=== PATIENT | female | born 1995 | race African-American/Black ===

== ENCOUNTER 2016-09-17 03:40 | Emergency (ER) | payer OTHER ==
--- NOTE | 2016-09-17 03:57 | PDOC ---
[id number] No Limitations - History of Present Illness Initial Comments: 09/17/16 06:13 The patient is a 21 year old female with no significant past medical history, who presents to the ED s/p syncopal episode. Patient was working at a [employer] when she passed out on the floor. Patient states it was very warm inside the lounge. She states she also has not been eating much due to a cold. Patient denies fever, chills, nausea, vomiting, diarrhea, hematochezia. Patient denies dysuria, frequency, urgency. LMP: August 23 2016 <Rakesh Coto - Last Filed: 09/17/16 06:13> <Soumya Faulkner - Last Filed: 09/25/16 04:58> - General Stated Complaint: SYNCOPE Time Seen by Provider: 09/17/16 03:56 Past History <Rakesh Coto - Last Filed: 09/17/16 06:13> - Reproductive History (#): 1 Para: 0 Therapeutic (s) & number: Yes Spontaneous : 0 - Psycho/Social/Smoking Cessation Hx Anxiety: No Suicidal Ideation: No Smoking History: Never smoked Hx Alcohol Use: No Drug/Substance Use Hx: No Substance Use Type: None <Soumya Faulkner - Last Filed: 09/25/16 04:58> - Past Medical History Allergies/Adverse Reactions: Allergies Allergy/AdvReac Type Severity Reaction Status Date / Time No Known Allergies Allergy Verified 09/17/16 03:57 Home Medications: Ambulatory Orders NK [No Known Home Medication] 02/14/16 Review of Systems - Review of Systems Able to Perform ROS?: Yes Comments:: 09/17/16 06:14 GENERAL/CONSTITUTIONAL: No fever or chills. No weakness. HEAD, EYES, EARS, NOSE AND THROAT: No change in vision. No ear pain or discharge. No sore throat. CARDIOVASCULAR: No chest pain or shortness of breath. RESPIRATORY: No cough, wheezing, or hemoptysis. GASTROINTESTINAL: No nausea, vomiting, diarrhea or constipation. GENITOURINARY: No dysuria, frequency, or change in urination. MUSCULOSKELETAL: No joint or muscle swelling or pain. No neck or back pain. SKIN: No rash NEUROLOGIC: + loss of consciousness. No headache, vertigo, or change in strength /sensation. ENDOCRINE: No increased thirst. No abnormal weight change. HEMATOLOGIC/LYMPHATIC: No anemia, easy bleeding, or history of blood clots. ALLERGIC/IMMUNOLOGIC: No hives or skin allergy. <Rakesh Coto - Last Filed: 09/17/16 06:13> *Physical Exam - Vital Signs Last Vital Signs Temp Pulse Resp BP Pulse Ox 98.6 F 108 H 20 123/80 100 09/17/16 03:57 09/17/16 03:57 09/17/16 03:57 09/17/16 03:57 09/17/16 03:57 - Physical Exam Comments: 09/17/16 06:15 GENERAL: Awake, alert, and fully oriented, in no acute distress HEAD: No signs of trauma EYES: PERRLA, EOMI, sclera anicteric, conjunctiva clear ENT: Auricles normal inspection, hearing grossly normal, nares patent, oropharynx clear without exudates. Moist mucosa NECK: Normal ROM, supple, no lymphadenopathy, JVD, or masses LUNGS: Breath sounds equal, clear to auscultation bilaterally. No wheezes, and no crackles HEART: Regular rate and rhythm, normal S1 and S2, no murmurs, rubs or gallops ABDOMEN: Soft, nontender, normoactive bowel sounds. No guarding, no rebound. No masses EXTREMITIES: Normal range of motion, no edema. No clubbing or cyanosis. No cords, erythema, or tenderness NEUROLOGICAL: Cranial nerves II through XII grossly intact. Normal speech, normal gait SKIN: Warm, Dry, normal turgor, no rashes or lesions noted. <Rakesh Coto - Last Filed: 09/17/16 06:13> ED Treatment Course - LABORATORY CBC & Chemistry Diagram: 09/17/16 05:00 09/17/16 05:00 - ADDITIONAL ORDERS Additional order review: Laboratory Results 09/17/16 09/17/16 09/17/16 05:00 04:48 04:00 Sodium 139 Potassium 4.0 Chloride 104 Carbon Dioxide 26 Anion Gap 9 BUN 8 Creatinine 0.7 Creat Clearance w eGFR > 60 Random Glucose 91 Calcium 8.8 Total Bilirubin 0.2 D AST 12 L ALT 15 D Alkaline Phosphatase 55 Total Protein 7.9 Albumin 3.8 Urine Color Yellow Urine Appearance Clear Urine pH 5.0 Ur Specific [place] 1.025 Urine Protein Negative Urine Glucose (UA) Negative Urine Ketones Negative Urine Blood Negative Urine Nitrite Negative Urine Bilirubin Negative Urine Urobilinogen Negative Ur Leukocyte Esterase Trace H D Urine RBC 2 Urine WBC 7 Ur Epithelial Cells Rare Urine Bacteria Rare Urine Mucus Moderate Urine HCG, Qual Cancelled Negative 09/17/16 05:00 RBC 4.04 MCV 72.7 L MCHC 32.0 RDW 17.5 H MPV 7.6 Neutrophils % 80.6 D Lymphocytes % 13.8 D Monocytes % 5.1 Eosinophils % 0.1 D Basophils % 0.4 <Rakesh Coto - Last Filed: 09/17/16 06:13> - LABORATORY CBC & Chemistry Diagram: 09/17/16 05:00 09/17/16 05:00 <Soumya Faulkner - Last Filed: 09/25/16 04:58> Medical Decision Making - Medical Decision Making 09/17/16 05:55 Patient Name: Kameron Jimenez THIS IS A PRELIMINARYREPORT FROM [facility] EXAM: CT brain without contrast IMAGES: 70 INDICATION: Vasovagal syncope DATE OF SERVICE: 2016-09-17 05:09:33.0 COMPARISON: none FINDINGS: The ventricular system is midline and nondilated. The sulcal pattern is normal for the patient's age. There is no bleed, mass, extra-axial fluid collection or mass effect. No skull fracture or skull lesion is identified. The visualized paranasal sinuses and mastoid air cells are clear. IMPRESSION: No acute pathology. THIS DOCUMENT HAS BEEN ELECTRONICALLY SIGNED 09/25/16 04:55 Pt comes after a vasovagal like syncope. Head CT normal; labs normal. Pt is at her baseline Hb/HCT level. Exam is normal. She is thin and hasnt eaten mch today. She fainted at work. However, he is stable for discharge, as workup in the ER reveals no abdormalities. EKG is normal. Follow up with PMD. <Soumya Faulkner - Last Filed: 09/25/16 04:58> *DC/Admit/Observation/Transfer - Attestations Scribe Attestion: 09/17/16 06:16 Documentation prepared by Rakesh Coto, acting as medical associate for Soumya Faulkner MD. <Rakesh Coto - Last Filed: 09/17/16 06:13> - Discharge Dispostion Admit: No <Soumya Faulkner - Last Filed: 09/25/16 04:58> Diagnosis at time of Disposition: Syncope, Iron deficiency anemia, Vasovagal episode, Dehydration, Decreased appetite - Discharge Dispostion Disposition: HOME Condition at time of disposition: Stable - Referrals Referrals: Ayd Lynn MD [Staff Physician] - Rodrigo Lynn MD [Primary Care Provider] - - Patient Instructions Printed Discharge Instructions: DI for Syncope in Adults (Fainting), Anemia: How Food and Vitamins Can Help, DI for Dehydration -- Adult
[2016-09-17 04:16] VITALS: TEMP 98.6; BMI 22.4
[2016-09-17] MEDS ORDERED: KETOROLAC TROMETHAMINE 30 MG/1 ML VIAL ONE (05:01)
[2016-09-17 05:02] LABS: URINE APPEARANCE CLEAR; URINE BILIRUBIN NEGATIVE (NEGATIVE); URINE BLOOD NEGATIVE (NEGATIVE); URINE COLOR YELLOW; URINE GLUCOSE (UA) NEGATIVE (NEGATIVE); URINE KETONE NEGATIVE (NEGATIVE); URINE NITRITE NEGATIVE (NEGATIVE); URINE PROTEIN NEGATIVE (NEGATIVE); URINE UROBILINOGEN NEGATIVE E.U./dl (0.2-1.0)
[2016-09-17 05:04] LABS: URINE LEUK ESTERASE TRACE (NEGATIVE)
[2016-09-17 05:08] LABS: BASOPHIL 0.4 % (0-2.0); EOSINOPHIL 0.1 % (0-4.5); MCH 23.3 pg (25.7-33.7); MEAN CELL VOLUME 72.7 fl (80-96); MEAN PLT VOLUME 7.6 fl (7.5-11.1); NEUTROPHILS 80.6 % (42.8-82.8); PLATELET COUNT 358 K/MM3 (134-434); RDW 17.5 % (11.6-15.6)
[2016-09-17 05:09] LABS: URINE BACTERIA RARE /hpf (NONE SEEN); URINE MUCUS MODERATE; URINE RBC 2 /hpf (0-3); URINE WBC 7 /hpf (3-5)
[2016-09-17] MEDS ORDERED: KETOROLAC TROMETHAMINE 30 MG/1 ML VIAL IVPUSH ONE (05:09)
[2016-09-17 05:51] LABS: CO2 26 mmol/L (21-32); CREATININE 0.7 mg/dL (0.55-1.02); GLUCOSE,RANDOM 91 mg/dL (74-106)
[2016-09-17 05:52] LABS: ALBUMIN 3.8 g/dl (3.4-5.0); ANION GAP 9 (8-16); BILIRUBIN,TOTAL 0.2 mg/dL (0.2-1.0); CALCIUM 8.8 mg/dL (8.5-10.1); SGOT/AST 12 U/L (15-37); SGPT/ALT 15 U/L (12-78); TOT PROT 7.9 g/dl (6.4-8.2)
[2016-09-17 05:53] LABS: ALK PHOS 55 U/L (45-117)
[2016-09-17 06:41] VITALS: BP 126/70; PULSE 90
--- NOTE | 2016-09-19 07:23 | EKG ---
Test Reason : Blood Pressure : / mmHG Vent. Rate : 096 BPM Atrial Rate : 096 BPM P-R Int : 150 ms QRS Dur : 086 ms QT Int : 344 ms P-R-T Axes : 073 048 050 degrees QTc Int : 434 ms NORMAL SINUS RHYTHM NORMAL ECG NO PREVIOUS ECGS AVAILABLE Confirmed by KATEY MIDDLETON MD ([id number]) on 09/19/2016 7:23:10 AM Referred By: Confirmed By:KATEY MIDDLETON MD
== END 2016-09-17 06:30 | disposition home or self-care (01) ==
LOC: JER 03:40
PROC: 3E0333Z Introduction of Anti-inflammatory into Peripheral Vein, Percutaneous Approach (ICD-10-PCS; principal; 2016-09-17)
DX: R55 Syncope and collapse (principal); E86.0 Dehydration; R63.0 Anorexia; D50.9 Iron deficiency anemia, unspecified
CPT/HCPCS: 36415; 70450-TC; 80053; 81003; 81015; 84703; 85025; 93005; 93010; 99282-25

== ENCOUNTER 2018-02-03 05:29 | Emergency (ER) | payer OTHER ==
[2018-02-03 06:05] VITALS: TEMP 98.1; BMI 23.6
[2018-02-03] MEDS ORDERED: ACETAMINOPHEN 325 MG TABLET (FP) PO ONE (06:14)
[2018-02-03] MEDS ORDERED: ACETAMINOPHEN 325 MG TABLET (FP) ONE (06:27)
--- NOTE | 2018-02-03 06:28 | PDOC ---
Attending Attestation - HPI HPI: 02/03/18 06:39 Patient is a 22 year old female with no significant past medical history who presents to the ED with complaints of diffuse lower abdominal pain that began x2 weeks ago. Patient reports experincing diffuse superpubic pain that she states is an intermittent pain that develops suddenly and subsides after 6 hours. She reports her last menstrual cycles was last month on december 23, but states she took a test yesterday afternoon with the results being negative. Patient denies taking any medication for pain but stating she wanted to come into the ED for further evaluation to make sure everything is fine. Denies chest pain, Sob. Denies nausea, vomiting. Denies contact with sick individuals, out of state travelling. Denies any other symptoms. Allergies: None Social history: No smoking. No alcohol. No illicit drugs. Surgical history: None PMD: Dr. Rodrigo Lynn - Physicial Exam PE: 02/03/18 06:39 GENERAL: +Reports mild superpubic tenderness. Awake, alert, and fully oriented, in no acute distress HEAD: No signs of trauma EYES: PERRLA, EOMI, sclera anicteric, conjunctiva clear ENT: Auricles normal inspection, hearing grossly normal, nares patent, oropharynx clear without exudates. Moist mucosa NECK: Normal ROM, supple, no lymphadenopathy, JVD, or masses LUNGS: Breath sounds equal, clear to auscultation bilaterally. No wheezes, and no crackles HEART: Regular rate and rhythm, normal S1 and S2, no murmurs, rubs or gallops ABDOMEN: No abdominal tenderness. Soft, normoactive bowel sounds. No guarding, no rebound. No masses EXTREMITIES: Normal range of motion, no edema. No clubbing or cyanosis. No cords, erythema, or tenderness NEUROLOGICAL: Cranial nerves II through XII grossly intact. Normal speech, normal gait SKIN: Warm, Dry, normal turgor, no rashes or lesions noted. <Ned Ulloa - Last Filed: 02/03/18 06:39> - Resident Resident Name: Terry Vincent - ED Attending Attestation I have performed the following: I have examined & evaluated the patient, The case was reviewed & discussed with the resident, I agree w/resident's findings & plan, Exceptions are as noted - Medical Decision Making 02/03/18 06:18 A portion of this note was written by my scribe, under my supervision. Vital Signs Temp Pulse Resp BP Pulse Ox 98.1 F 71 18 132/66 99 02/03/18 05:30 02/03/18 05:30 02/03/18 05:30 02/03/18 05:30 02/03/18 05:30 22 year old female with no past medical history presents with suprapubic discomfort x several weeks. Pt reports that the pain has been going intermittent and now pressure in sensation. The patient is concerned that she had missed her period for nearly a week and a half. Her LMP was January 23, and the patient is sexually active. Not on control. Pt reports taking her urine test yesterday which was reportedly negative. Pt did have some urinary frequency few days ago, but denies dysuria. On my examination, the patient does not have any obvious abdominal tenderness or pain at mcburney's point. She some have some very mild suprapubic discomfort as per the patient. I do not suspect appendicitis, colitis, or other acute abdominal pathology. However will need to r/o cystitis. In addition, the patient needs a test. If the workup is negative and the patient feels reassured, we can have the patient follow up as an outpatient with a RN BURN physician. However, if the patient continues to have persistent pain, will need to investigate with further imaging and lab workup. 02/03/18 06:45 Urine Test Results Urine Color Yellow 02/03/18 06:02 Urine Appearance Cloudy 02/03/18 06:02 Urine pH 5.0 (5.0-8.0) 02/03/18 06:02 Ur Specific [place] 1.024 (1.001-1.035) 02/03/18 06:02 Urine Protein Negative (NEGATIVE) 02/03/18 06:02 Urine Glucose (UA) Negative (NEGATIVE) 02/03/18 06:02 Urine Ketones Negative (NEGATIVE) 02/03/18 06:02 Urine Blood Negative (NEGATIVE) 02/03/18 06:02 Urine Nitrite Negative (NEGATIVE) 02/03/18 06:02 Urine Bilirubin Negative (<2.0 mg/dL) 02/03/18 06:02 Ur Leukocyte Esterase Trace (NEGATIVE) 02/03/18 06:02 Urine test negative. Given her symptoms, and trace leuks, will treat as UTI. Keflex 02/03/18 06:49 Pt states that she feels more comfortable knowing she's not . She has a follow up appointment with her PATHOLOGY TEACHER. Will d/c with antibiotics. <Jaylen Simon - Last Filed: 02/03/18 06:50>
--- NOTE | 2018-02-03 06:28 | PDOC ---
History of Present Illness - General Chief Complaint: Pain Stated Complaint: ABD PAIN Time Seen by Provider: 02/03/18 05:55 History Source: Patient Exam Limitations: No Limitations - History of Present Illness Initial Comments: 22 y/o female presenting to [facility] ER complaining of suprapubic tightness for the past day. Described as non-radiating, intermittent, and made worse by sitting. Has been experiencing sharp and intermittent suprapublc pain for the past three weeks. Endorses a increased urinary frequency one day last week. Denies dysuria , discharge, hematuria, fevers, chills, diaphoresis, or migratory pain. Is concerned that her period is a week and two days late. Is sexualy active with single male partner. Denies practicing safe sex. Is not on control. History of gonorrhea in 2016. 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 Past History - Past Medical History Allergies/Adverse Reactions: Allergies Allergy/AdvReac Type Severity Reaction Status Date / Time No Known Allergies Allergy Verified 02/03/18 06:37 Home Medications: Ambulatory Orders Cephalexin Monohydrate [Keflex -] 500 mg PO BID 7 Days #14 capsule 02/03/18 COPD: No - Reproductive History (#): 1 Para: 0 Therapeutic (s) & number: Yes Spontaneous : 0 - Suicide/Smoking/Psychosocial Hx Smoking History: Never smoked Have you smoked in the past 12 months: No Hx Alcohol Use: No Drug/Substance Use Hx: No Substance Use Type: None Review of Systems - Review of Systems Able to Perform ROS?: Yes Is the patient limited Armenian proficient: No Constitutional: No: Chills, Diaphoresis, Fever HEENTM: No: Difficulty Swallowing Respiratory: No: Cough Cardiac (ROS): No: Chest Pain ABD/GI: No: Constipated, Diarrhea, Nausea, Vomiting : Yes: Frequency (Single episode last week). No: Burning, Dysuria, Discharge , Flank Pain, Hematuria Musculoskeletal: No: Back Pain Integumentary: No: Bruising Hematologic/Lymphatic: No: Easy Bleeding, Easy Bruising *Physical Exam - Vital Signs Last Vital Signs Temp Pulse Resp BP Pulse Ox 98.1 F 71 18 132/66 99 02/03/18 05:30 02/03/18 05:30 02/03/18 05:30 02/03/18 05:30 02/03/18 05:30 - Physical Exam Comments: Constitutional: Well-developed, well-nourished female in no acute distress. Found semi-fowlers in hospital bed. Alert and oriented x4. Answered all questions appropriately and completely. Speech was non-labored, non-pressured. HEENT: Normocephalic. No obvious external signs of trauma. Sclerae white. Conjunctiva moist and not injected. Hearing grossly normal. No nasal discharge. Lips, gums and oropharynx: pink, moist, not injected, no lesions, no ulcerations. Neck is supple, trachea is midline. Cardiovascular: Regular rate and regular rhythm. 3/5 systolic murmur loudest on right sternal border with full expiration, rubs, clicks, or gallops. Peripheral pulses: Radial pulses full. Respiratory: Equal chest rise and fall. Clear to auscultation bilaterally. No stridor, no wheezing, no rhonchi. Gastrointestinal: abdomen is subjectively tender suprapubiclly without guarding , grimace, or rebound; otherwise soft and nondistended. No hepatosplenemegaly. No pulsatile masses. No overlying skin lesions or obvious signs of trauma. Neuro: Alert and oriented. Moving all four extremities spontaneously. Psych: Affect: appropriate. Mood: normal. Skin: Warm, dry, and intact. : No R or L CVA tenderness. Medical Decision Making - Medical Decision Making *Reviewed nursing notes and prior visit documentation. 22 y/o female with subjective suprapubic tenderness with reported urinary frequency. Concerned that she has not started menstruating in setting of reported unprotected sex with male partner. Afebrile. Vitals unremarkable for hypotension and tachycardia. Ordered UA, urine culture, Upreg, and chlamydia/GC amplification. PO tylenol for symptom relief. UPreg negative. UA positive for leukocyte esterase. Will treat for cystitis given frequency. Prescribed Keflex 500 BID. Discussed results with pt. She expressed verbal understanding and agreement with plan to discharge home with outpatient antibiotic therapy. She is already scheduled for an OBGYN appointment at [facility] on Sunday. *DC/Admit/Observation/Transfer Diagnosis at time of Disposition: UTI (urinary tract infection) Qualifiers: Urinary tract infection type: site unspecified Hematuria presence: without hematuria Qualified Code(s): N39.0 - Urinary tract infection, site not specified - Discharge Dispostion Disposition: HOME Condition at time of disposition: Good Decision to Admit order: No - Prescriptions Prescriptions: Cephalexin Monohydrate [Keflex -] 500 mg PO BID 7 Days #14 capsule - Referrals Referrals: Rodrigo Lynn MD [Primary Care Provider] - - Patient Instructions Printed Discharge Instructions: DI for Urinary Tract Infection (UTI) Additional Instructions: Your symptoms are likely because of urinary tract infection. I have sent a prescription for Keflex to the [facility] in [facility]. Please take this medication twice a day for seven days. Please keep your follow up appointment at [facility] on Sunday at 9am. Come back to the emergency department if your symptoms worsen or you feel like you need additional emergency care. Print Language: ANGUILLAN - Post Discharge Activity
[2018-02-03 06:39] LABS: URINE APPEARANCE CLOUDY; URINE BILIRUBIN NEGATIVE (<2.0 mg/dL); URINE COLOR YELLOW; URINE GLUCOSE (UA) NEGATIVE (NEGATIVE); URINE KETONE NEGATIVE (NEGATIVE); URINE LEUK ESTERASE TRACE (NEGATIVE); URINE NITRITE NEGATIVE (NEGATIVE); URINE PROTEIN NEGATIVE (NEGATIVE); URINE UROBILINOGEN NEGATIVE mg/dL (0.2-1.0)
[2018-02-03 06:41] LABS: HCG,QUALITATIVE URINE Negative
[2018-02-03 06:45] LABS: EPI CELLS MODERATE /HPF (FEW); URINE BACTERIA RARE /hpf (NONE SEEN); URINE MUCUS MANY
[2018-02-03 07:23] VITALS: BP 118/81; PULSE 76
== END 2018-02-03 07:23 | disposition home or self-care (01) ==
LOC: JER 05:29
DX: N39.0 Urinary tract infection, site not specified (principal); B96.89 Other specified bacterial agents as the cause of diseases classified elsewhere
CPT/HCPCS: 36415; 81003; 81015; 84703; 87086; 87186; 87491; 87591; 99282-25

== ENCOUNTER 2018-11-29 12:50 | Emergency (ER) | payer OTHER | END 2018-11-29 17:00 | disposition home or self-care (01) | LOC: JER 12:50 ==

== ENCOUNTER 2019-01-31 20:59 | Emergency (ER) | payer OTHER | END 2019-01-31 22:32 | disposition home or self-care (01) | LOC: JERFT 20:59 ==

== ENCOUNTER 2020-06-06 10:54 | Inpatient (IN) | payer OTHER ==
[2020-06-06 12:46] VITALS: BMI 34.2
[2020-06-06 13:14] LABS: BASO % 0.1 % (0-2.0); EOS % 0.4 % (0-4.5); HEMATOCRIT 41.2 % (32.4-45.2); HEMOGLOBIN 13.6 GM/dL (10.7-15.3); LYMPH % 19.1 % (8-40); MCH 30.1 pg (25.7-33.7); MCHC 33.1 g/dl (32.0-36.0); MEAN CELL VOLUME 91.1 fl (80-96); MEAN PLT VOLUME 9.3 fl (7.5-11.1); MONO % 7.2 % (3.8-10.2); NEUT % 73.2 % (42.8-82.8); PLATELET COUNT 280 K/MM3 (134-434); RBC 4.53 M/mm3 (3.60-5.2); RDW 15.7 % (11.6-15.6); WHITE BLOOD COUNT 9.3 K/mm3 (4.0-10.0)
[2020-06-06 13:20] LABS: INR 0.97 (0.83-1.09); PROTHROMBIN TIME (PATIENT) 11.7 SEC (9.7-13.0)
[2020-06-06 13:22] LABS: ACTIVATED PTT 30.3 SECONDS (25.2-36.5)
[2020-06-06 13:32] LABS: POTASSIUM 3.8 mmol/L (3.5-5.1)
[2020-06-06 13:34] LABS: CALCIUM 9.1 mg/dL (8.5-10.1)
[2020-06-06 13:35] LABS: BLOOD UREA NITROGEN 3.8 mg/dL (7-18)
[2020-06-06 13:38] LABS: CREATININE 0.4 mg/dL (0.55-1.3)
[2020-06-06] MEDS: DEXTROSE 5%-LACTATED RINGERS 1,000 ML IV SCH (14:00)
[2020-06-06] MEDS ORDERED: OXYTOCIN 30 UNITS in 0.9% NS 30 UNIT/500 ML INFUS.BAG IVPB ONE (14:05)
[2020-06-06] MEDS: OXYTOCIN 30 UNITS in 0.9% NS 30 UNIT/500 ML INFUS.BAG IVPB SCH (14:10)
[2020-06-06 14:29] LABS: HIV INTERPRETATION NEGATIVE (NEGATIVE)
[2020-06-06] MEDS ORDERED: PCA PUMP NR ONE (19:03)
[2020-06-06] MEDS ORDERED: FENTANYL/BUPIVACAINE/NS/PF - PCEA - 50 ML DISP.SYRIN EP ONE (19:22)
[2020-06-06] MEDS: FENTANYL/BUPIVACAINE/NS/PF - PCEA - 50 ML DISP.SYRIN EP SCH (20:00)
[2020-06-06] MEDS ORDERED: NALOXONE HCL 0.4 MG/ML VIAL IVPUSH PRN (20:18)
[2020-06-06] MEDS: ELECTROLYTE-148 SOLN 1,000 ML IV SCH (22:00)
[2020-06-07] MEDS ORDERED: FENTANYL/BUPIVACAINE/NS/PF - PCEA - 50 ML DISP.SYRIN EP ONE (00:34)
[2020-06-07] MEDS ORDERED: OXYTOCIN 20 UNITS in 0.9% NS 20 UNIT/1,000 ML INFUS.BAG IV ONE (03:10)
[2020-06-07] MEDS: OXYTOCIN 20 UNITS in 0.9% NS 20 UNIT/1,000 ML INFUS.BAG IV SCH (03:15)
[2020-06-07] MEDS ORDERED: METHYLERGONOVINE MALEATE 0.2 MG/1 ML AMP IM PRN (03:29)
[2020-06-07] MEDS ORDERED: BENZOCAINE 20% 57 GM BOTTLE TP PRN (03:29)
[2020-06-07] MEDS ORDERED: WITCH HAZEL 50% (TUCKS) 40 PAD/JAR PAD TP PRN (03:29)
[2020-06-07] MEDS ORDERED: BISACODYL 10 MG SUPP.RECT RC PRN (03:29)
[2020-06-07] MEDS ORDERED: BENZOCAINE 28 GM HEMORRHOIDAL OINTMENT TP PRN (03:29)
[2020-06-07] MEDS ORDERED: ONDANSETRON 4 MG/2 ML VIAL IVPUSH ONE (08:00)
[2020-06-07] MEDS: IBUPROFEN 600 MG TABLET (FP) PO PRN ×2 (08:22→20:02)
[2020-06-07] MEDS: ACETAMINOPHEN 325 MG TABLET (FP) PO PRN ×2 (08:25→20:02)
[2020-06-07] MEDS: PRENATAL VITAMINS W/ FOLIC ACID TABLET (FP) PO SCH (12:02)
[2020-06-07] MEDS: FENTANYL/BUPIVACAINE/NS/PF - PCEA - 50 ML DISP.SYRIN EP SCH (21:56)
[2020-06-08 09:15] LABS: BASO % 0.4 % (0-2.0); EOS % 0.8 % (0-4.5); HEMATOCRIT 35.3 % (32.4-45.2); HEMOGLOBIN 11.5 GM/dL (10.7-15.3); LYMPH % 19.7 % (8-40); MCH 29.7 pg (25.7-33.7); MCHC 32.6 g/dl (32.0-36.0); MEAN PLT VOLUME 9.3 fl (7.5-11.1); MONO % 6.9 % (3.8-10.2); NEUT % 72.2 % (42.8-82.8); PLATELET COUNT 250 K/MM3 (134-434); RBC 3.88 M/mm3 (3.60-5.2); RDW 15.7 % (11.6-15.6); WHITE BLOOD COUNT 14.5 K/mm3 (4.0-10.0)
[2020-06-08] MEDS: OXYTOCIN 20 UNITS in 0.9% NS 20 UNIT/1,000 ML INFUS.BAG IV SCH (10:36)
[2020-06-08] MEDS: ELECTROLYTE-148 SOLN 1,000 ML IV SCH (10:36)
[2020-06-08] MEDS: OXYTOCIN 30 UNITS in 0.9% NS 30 UNIT/500 ML INFUS.BAG IVPB SCH ×2 (10:36→20:00)
[2020-06-08] MEDS: PRENATAL VITAMINS W/ FOLIC ACID TABLET (FP) PO SCH (10:36)
[2020-06-08] MEDS: DEXTROSE 5%-LACTATED RINGERS 1,000 ML IV SCH ×2 (10:36→20:00)
[2020-06-08] MEDS: FENTANYL/BUPIVACAINE/NS/PF - PCEA - 50 ML DISP.SYRIN EP SCH (20:00)
[2020-06-08] MEDS ORDERED: SENNOSIDES/DOCUSATE COMBO (SENNA PLUS) TABLET (UD) PO PRN (22:00)
[2020-06-09] MEDS: ACETAMINOPHEN 325 MG TABLET (FP) PO PRN (10:20)
[2020-06-09] MEDS: IBUPROFEN 600 MG TABLET (FP) PO PRN (10:21)
[2020-06-09] MEDS: PRENATAL VITAMINS W/ FOLIC ACID TABLET (FP) PO SCH (10:22)
[2020-06-09 13:31] VITALS: BP 128/68; PULSE 84; TEMP 98.3
[2020-06-10 11:50] LABS: POC NITRAZINE POS
== END 2020-06-09 14:10 | disposition home or self-care (01) | DRG 807 ==
LOC: JLDR 10:54 → J3W 06-07 04:55
PROVIDERS: ADMIT Obstetrics & Gynecology; ATTEND Obstetrics & Gynecology
PROC: 0KQM0ZZ Repair Perineum Muscle, Open Approach (ICD-10-PCS; principal; 2020-06-07)
PROC: 10E0XZZ Delivery of Products of Conception, External Approach (ICD-10-PCS; 2020-06-07)
DX: O70.1 Second degree perineal laceration during delivery (principal); Z37.0 Single live birth; Z3A.38 38 weeks gestation of pregnancy
CPT/HCPCS: 36415; 59409; 80048; 83986-QW; 85025; 85610; 85730; 86780; 86850; 86900; 86901; 87389; C9803; U0003

== ENCOUNTER 2021-09-28 18:30 | Emergency (ER) | payer OTHER ==
[2021-09-28 19:00] VITALS: BP 110/71; PULSE 83; TEMP 98; BMI 25.8
== END 2021-09-28 19:54 | disposition home or self-care (01) ==
LOC: JER 18:30
DX: L02.211 Cutaneous abscess of abdominal wall (principal)
CPT/HCPCS: 99283-25

== ENCOUNTER 2023-05-19 20:35 | Emergency (ER) | payer OTHER ==
[2023-05-19 20:51] VITALS: BP 128/58; PULSE 84; RESP 18; TEMP 97.8; BMI 24.3
[2023-05-19 23:51] LABS: HCG,QUALITATIVE URINE Positive
[2023-05-20 01:23] LABS: HEMATOCRIT 29.4 % (32.4-45.2); HEMOGLOBIN 9.2 GM/dL (10.7-15.3); MCH 22.6 pg (25.7-33.7); MCHC 31.3 g/dl (32.0-36.0); MEAN CELL VOLUME 72.1 fl (80-96); MEAN PLT VOLUME 7.3 fl (7.5-11.1); PLATELET COUNT 395 10^3/uL (134-434); RBC 4.07 M/mm3 (3.60-5.2); RDW 16.6 % (11.6-15.6); WHITE BLOOD COUNT 8.2 K/mm3 (4.0-10.0)
[2023-05-20 01:56] LABS: POTASSIUM 3.9 mmol/L (3.5-5.1)
[2023-05-20 01:57] LABS: CALCIUM 8.4 mg/dL (8.5-10.1)
[2023-05-20 01:58] LABS: ALBUMIN 3.1 g/dl (3.4-5.0); BLOOD UREA NITROGEN 8.9 mg/dL (7-18)
[2023-05-20 02:01] LABS: CREATININE 0.6 mg/dL (0.55-1.3)
[2023-05-20 02:03] LABS: BILIRUBIN,TOTAL 0.2 mg/dL (0.2-1); TOT PROT 6.8 g/dl (6.4-8.2)
[2023-05-20 02:20] LABS: EPI CELLS >36 /uL (0-25.1); HYALINE CASTS 2 /uL (0-3.1); URINE APPEARANCE CLOUDY; URINE BACTERIA >9,000 /uL (0-1359); URINE BILIRUBIN NEGATIVE (NEGATIVE); URINE COLOR YELLOW; URINE GLUCOSE (UA) NEGATIVE (NEGATIVE); URINE KETONE NEGATIVE (NEGATIVE); URINE LEUK ESTERASE 2+ (NEGATIVE); URINE NITRITE NEGATIVE (NEGATIVE); URINE PROTEIN NEGATIVE (NEGATIVE); URINE WBC 179 /uL (0-25.8)
[2023-05-20 02:47] LABS: URINE RBC 24.6 /uL (0-23.9)
[2023-05-20] MEDS ORDERED: CEPHALEXIN MONOHYDRATE 500 MG CAPSULE (UD) PO ONE (03:09)
[2023-05-20] MEDS ORDERED: CEPHALEXIN MONOHYDRATE 500 MG CAPSULE (UD) ONE (03:48)
== END 2023-05-20 03:58 | disposition home or self-care (01) ==
LOC: JER 20:35 → JERFT 20:35 → JER 05-20 03:58
DX: O23.41 Unspecified infection of urinary tract in pregnancy, first trimester (principal); O26.891 Other specified pregnancy related conditions, first trimester; K42.9 Umbilical hernia without obstruction or gangrene; Z3A.01 Less than 8 weeks gestation of pregnancy
CPT/HCPCS: 36415; 76817-TC; 80053; 81003; 84702; 84703; 85027; 86850; 86900; 86901; 99284-25

== ENCOUNTER 2023-05-20 18:17 | Emergency (ER) | payer OTHER ==
[2023-05-20 18:38] VITALS: BP 114/73; PULSE 82; RESP 18; TEMP 98.3; BMI 26.6
[2023-05-22] MEDS ORDERED: ONDANSETRON 4 MG/2 ML VIAL ONE (21:34)
[2023-05-23] MEDS ORDERED: CLINDAMYCIN HCL 150 MG CAPSULE (FP) ONE (00:38)
== END 2023-05-20 19:38 | disposition home or self-care (01) ==
LOC: JERFT 18:17 → JER 18:17 → JERFT 19:38
DX: O20.9 Hemorrhage in early pregnancy, unspecified (principal); Z3A.00 Weeks of gestation of pregnancy not specified
CPT/HCPCS: 99283-25

== ENCOUNTER 2023-05-22 19:20 | Emergency (ER) | payer OTHER ==
[2023-05-22 19:25] VITALS: RESP 18; TEMP 99.1; BMI 25.8
[2023-05-22] MEDS ORDERED: ONDANSETRON 4 MG/2 ML VIAL IVPUSH ONE (21:16)
[2023-05-22] MEDS ORDERED: SODIUM CHLORIDE 0.9% 500 ML INFUS.BAG IV ONE (21:16)
[2023-05-22] MEDS ORDERED: KETOROLAC TROMETHAMINE 30 MG/1 ML VIAL IVPUSH ONE (21:16)
[2023-05-22] MEDS ORDERED: morphine CARPU-JECT 2 MG/1 ML DISP.SYRIN IVPUSH ONE (21:36)
[2023-05-22 23:01] LABS: BASO % 0.9 % (0-2.0); EOS % 0.5 % (0-4.5); HEMATOCRIT 32.4 % (32.4-45.2); HEMOGLOBIN 10.2 GM/dL (10.7-15.3); LYMPH % 26.8 % (8-40); MCH 22.7 pg (25.7-33.7); MCHC 31.4 g/dl (32.0-36.0); MEAN CELL VOLUME 72.1 fl (80-96); MEAN PLT VOLUME 7.6 fl (7.5-11.1); MONO % 6.8 % (3.8-10.2); PLATELET COUNT 449 10^3/uL (134-434); RBC 4.49 M/mm3 (3.60-5.2); RDW 16.9 % (11.6-15.6); WHITE BLOOD COUNT 9.2 K/mm3 (4.0-10.0)
[2023-05-22 23:07] LABS: INR 1.14 (0.83-1.09); PROTHROMBIN TIME (PATIENT) 13.2 SEC (9.7-13.0)
[2023-05-22 23:09] LABS: ACTIVATED PTT 30.1 SECONDS (25.2-36.5)
[2023-05-22 23:43] LABS: ALBUMIN 3.3 g/dl (3.4-5.0); BLOOD UREA NITROGEN 7.1 mg/dL (7-18)
[2023-05-22 23:46] LABS: HCG,QUALITATIVE URINE Positive
[2023-05-22 23:46] LABS: CREATININE 0.6 mg/dL (0.55-1.3)
[2023-05-22 23:47] LABS: TOT PROT 7.6 g/dl (6.4-8.2)
[2023-05-22 23:48] LABS: BILIRUBIN,TOTAL 0.2 mg/dL (0.2-1)
[2023-05-22 23:49] LABS: CALCIUM 8.4 mg/dL (8.5-10.1)
[2023-05-22 23:55] LABS: EPI CELLS >36 /uL (0-25.1); HYALINE CASTS 4 /uL (0-3.1); PH,URINE 5.5 (5.0-8.0); URINE APPEARANCE CLOUDY; URINE BACTERIA 3669 /uL (0-1359); URINE BILIRUBIN NEGATIVE (NEGATIVE); URINE COLOR YELLOW; URINE GLUCOSE (UA) NEGATIVE (NEGATIVE); URINE KETONE NEGATIVE (NEGATIVE); URINE LEUK ESTERASE NEGATIVE (NEGATIVE); URINE NITRITE NEGATIVE (NEGATIVE); URINE PROTEIN NEGATIVE (NEGATIVE); URINE RBC 10 /uL (0-23.9); URINE WBC 46 /uL (0-25.8)
[2023-05-23] MEDS ORDERED: CLINDAMYCIN HCL 150 MG CAPSULE (FP) PO ONE (00:37)
[2023-05-23 00:45] VITALS: BP 117/78; PULSE 74
== END 2023-05-23 00:45 | disposition home or self-care (01) ==
LOC: JER 19:20
PROC: 3E033GC Introduction of Other Therapeutic Substance into Peripheral Vein, Percutaneous Approach (ICD-10-PCS; principal; 2023-05-22)
PROC: 3E033GC Introduction of Other Therapeutic Substance into Peripheral Vein, Percutaneous Approach (ICD-10-PCS; 2023-05-22)
PROC: 0H97XZZ Drainage of Abdomen Skin, External Approach (ICD-10-PCS; 2023-05-22)
DX: L02.216 Cutaneous abscess of umbilicus (principal); R10.33 Periumbilical pain; R11.0 Nausea
CPT/HCPCS: 36415; 76705-TC; 80053; 81003; 83690; 84703; 85025; 85610; 85730; 87086; 99284-25

== ENCOUNTER 2023-06-01 11:46 | Inpatient (IN) | payer OTHER ==
[2023-06-01] MEDS ORDERED: SODIUM CHLORIDE 2,368 ML IV ONE (12:30)
[2023-06-01] MEDS ORDERED: ACETAMINOPHEN 1000 MG/100 ML BAG IVPB ONE ×3 (12:31→22:27)
[2023-06-01 13:16] LABS: BASO % 0.8 % (0-2.0); EOS % 0.6 % (0-4.5); HEMATOCRIT 35.5 % (32.4-45.2); HEMOGLOBIN 10.9 GM/dL (10.7-15.3); LYMPH % 19.7 % (8-40); MCH 22.5 pg (25.7-33.7); MCHC 30.7 g/dl (32.0-36.0); MEAN CELL VOLUME 73.2 fl (80-96); MEAN PLT VOLUME 7.6 fl (7.5-11.1); MONO % 8.9 % (3.8-10.2); PLATELET COUNT 483 10^3/uL (134-434); RBC 4.85 M/mm3 (3.60-5.2); RDW 16.9 % (11.6-15.6); WHITE BLOOD COUNT 6.3 K/mm3 (4.0-10.0)
[2023-06-01] MEDS ORDERED: ACETAMINOPHEN INJECTION 100 ML IVPB ONE (13:25)
[2023-06-01 13:27] LABS: VENOUS O2 SATURATION 51.3 % (70-80); VENOUS PCO2 41.9 mmHg (38-52); VENOUS PH 7.364 (7.310-7.410)
[2023-06-01 13:35] LABS: INR 1.1 (0.83-1.09); PROTHROMBIN TIME (PATIENT) 12.7 SEC (9.7-13.0)
[2023-06-01 13:40] LABS: CHLORIDE 105 mmol/L (98-107); POTASSIUM 3.9 mmol/L (3.5-5.1); SODIUM 138 mmol/L (136-145)
[2023-06-01 13:42] LABS: ALBUMIN 3.7 g/dl (3.4-5.0); ANION GAP 9 mmol/L (4-13); BLOOD UREA NITROGEN 5.6 mg/dL (7-18); CALCIUM 8.7 mg/dL (8.5-10.1); CO2 24 mmol/L (21-32); GLUCOSE,RANDOM 78 mg/dL (74-106)
[2023-06-01 13:45] LABS: SGPT/ALT 17 U/L (13-61)
[2023-06-01 13:46] LABS: CREATININE 0.7 mg/dL (0.55-1.3); SGOT/AST 18 U/L (15-37)
[2023-06-01 13:47] LABS: BILIRUBIN,TOTAL 0.7 mg/dL (0.2-1); TOT PROT 8.4 g/dl (6.4-8.2)
[2023-06-01 13:48] LABS: ALK PHOS 70 U/L (45-117)
[2023-06-01 13:51] LABS: EPI CELLS 19 /uL (0-25.1); HYALINE CASTS 0 /uL (0-3.1); PH,URINE 7.5 (5.0-8.0); URINE APPEARANCE CLEAR; URINE BACTERIA 356 /uL (0-1359); URINE BILIRUBIN NEGATIVE (NEGATIVE); URINE COLOR YELLOW; URINE GLUCOSE (UA) NEGATIVE (NEGATIVE); URINE KETONE NEGATIVE (NEGATIVE); URINE LEUK ESTERASE NEGATIVE (NEGATIVE); URINE NITRITE NEGATIVE (NEGATIVE); URINE PROTEIN NEGATIVE (NEGATIVE); URINE RBC 10 /uL (0-23.9); URINE UROBILINOGEN 0.2 mg/dL (0.2-1.0); URINE WBC 8 /uL (0-25.8)
[2023-06-01] MEDS ORDERED: DOXYCYCLINE HYCLATE 100 MG CAPSULE PO ONE ×2 (18:05→18:28)
[2023-06-01] MEDS ORDERED: KETOROLAC TROMETHAMINE 15 MG/ML VIAL IVPUSH ONE (18:51)
[2023-06-01] MEDS ORDERED: KETOROLAC TROMETHAMINE 15 MG/ML VIAL ONE (18:51)
[2023-06-02] MEDS: OSELTAMIVIR PHOSPHATE 75 MG CAPSULE PO SCH ×3 (00:28→21:25)
[2023-06-02] MEDS ORDERED: LACTATED RINGERS SOLUTION 1,000 ML/1,000 ML INFUS.BAG IV SCH (07:30)
[2023-06-02] MEDS ORDERED: ONDANSETRON 4 MG/2 ML VIAL IVPUSH PRN (08:05)
[2023-06-02] MEDS ORDERED: FAMOTIDINE 20 MG/50 ML IVPB 20 MG/50 ML MG IVPB ONE ×2 (08:26→08:46)
[2023-06-02] MEDS ORDERED: ACETAMINOPHEN 325 MG TABLET (FP) ONE (08:48)
[2023-06-02] MEDS: ACETAMINOPHEN 325 MG TABLET (FP) PO PRN ×2 (08:48→19:11)
[2023-06-02 08:56] LABS: HEMATOCRIT 33.1 % (32.4-45.2); HEMOGLOBIN 10.4 GM/dL (10.7-15.3); MCH 22.8 pg (25.7-33.7); MCHC 31.3 g/dl (32.0-36.0); MEAN CELL VOLUME 72.9 fl (80-96); MEAN PLT VOLUME 7.6 fl (7.5-11.1); PLATELET COUNT 452 10^3/uL (134-434); RBC 4.54 M/mm3 (3.60-5.2); RDW 17.4 % (11.6-15.6); WHITE BLOOD COUNT 5.1 K/mm3 (4.0-10.0)
[2023-06-02 09:20] LABS: CALCIUM 8.7 mg/dL (8.5-10.1)
[2023-06-02 09:21] LABS: BLOOD UREA NITROGEN 5.2 mg/dL (7-18)
[2023-06-02 09:24] LABS: CREATININE 0.7 mg/dL (0.55-1.3)
[2023-06-02] MEDS ORDERED: OSELTAMIVIR PHOSPHATE 75 MG CAPSULE ONE (09:41)
[2023-06-02] MEDS ORDERED: CEFTRIAXONE 1 GM in DEXTROSE 5%-WATER - 50 ML IVPB SCH (10:00)
[2023-06-02] MEDS ORDERED: CEFTRIAXONE 1 GM/50 ML BAG ONE (10:04)
[2023-06-02 11:16] LABS: HIV INTERPRETATION NEGATIVE (NEGATIVE)
[2023-06-02] MEDS ORDERED: DOXYCYCLINE HYCLATE 100 MG VIAL ONE (11:55)
[2023-06-02] MEDS: DOXYCYCLINE INJECTION 100 MG in DEXTROSE 5%-WATER 100 ML IVPB SCH ×2 (11:58→22:49)
[2023-06-02] MEDS ORDERED: BENZOCAINE/MENTH/CETYLPYRD CL 1 EACH LOZENGE MM PRN (12:48)
[2023-06-02 18:39] VITALS: BMI 26.2
[2023-06-02] MEDS: CEFOXITIN SODIUM 2 GM in DEXTROSE 5%-WATER 100 ML IVPB SCH (21:25)
[2023-06-03] MEDS: CEFOXITIN SODIUM 2 GM in DEXTROSE 5%-WATER 100 ML IVPB SCH ×3 (02:52→10:35)
[2023-06-03 09:47] LABS: HEMATOCRIT 31.4 % (32.4-45.2); HEMOGLOBIN 9.9 GM/dL (10.7-15.3); MCH 22.9 pg (25.7-33.7); MCHC 31.5 g/dl (32.0-36.0); MEAN CELL VOLUME 72.7 fl (80-96); MEAN PLT VOLUME 7.7 fl (7.5-11.1); PLATELET COUNT 407 10^3/uL (134-434); RBC 4.32 M/mm3 (3.60-5.2); RDW 16.6 % (11.6-15.6); WHITE BLOOD COUNT 3.8 K/mm3 (4.0-10.0)
[2023-06-03] MEDS: OSELTAMIVIR PHOSPHATE 75 MG CAPSULE PO SCH ×2 (09:53→10:36)
[2023-06-03] MEDS: DOXYCYCLINE INJECTION 100 MG in DEXTROSE 5%-WATER 100 ML IVPB SCH (09:54)
[2023-06-03 09:57] LABS: POTASSIUM 3.8 mmol/L (3.5-5.1)
[2023-06-03 10:00] LABS: BLOOD UREA NITROGEN 6.6 mg/dL (7-18)
[2023-06-03 10:03] LABS: CREATININE 0.5 mg/dL (0.55-1.3)
[2023-06-03 10:05] LABS: BILIRUBIN,TOTAL 0.5 mg/dL (0.2-1); TOT PROT 6.6 g/dl (6.4-8.2)
[2023-06-03 10:12] LABS: ALBUMIN 2.8 g/dl (3.4-5.0)
[2023-06-03] MEDS ORDERED: FAMOTIDINE 20 MG/50 ML IVPB 20 MG/50 ML MG IVPB ONE (10:28)
[2023-06-03] MEDS: CEFOXITIN SODIUM 2 GM in DEXTROSE 5%-WATER - 100 ML IVPB SCH (10:37)
[2023-06-03] MEDS ORDERED: diphenhydrAMINE HCL 25 MG CAPSULE (FP) PO PRN (10:47)
[2023-06-03] MEDS ORDERED: CLINDAMYCIN 900 MG PREMIX IVPB 900 MG/50 ML BAG IVPB SCH (18:00)
[2023-06-03] MEDS: AZTREONAM 1 GM in DEXTROSE 5%-WATER - 50 ML IVPB SCH (19:45)
[2023-06-04] MEDS: AZTREONAM 1 GM in DEXTROSE 5%-WATER - 50 ML IVPB SCH ×3 (01:56→18:32)
[2023-06-04] MEDS: CLINDAMYCIN 900 MG PREMIX IVPB 900 MG/50 ML BAG IVPB SCH ×3 (06:24→18:33)
[2023-06-04] MEDS ORDERED: AZITHROMYCIN IVPB 500 MG/250 ML BAG IVPB SCH (10:00)
[2023-06-04 12:11] VITALS: RESP 18
[2023-06-04 15:45] VITALS: BP 100/57; PULSE 69; TEMP 98
== END 2023-06-04 20:00 | disposition home or self-care (01) | DRG 531 ==
LOC: JER 11:46 → JERBED 06-02 00:09 → OBSVTOIN 06-02 01:46 → J8W 06-02 18:52
PROVIDERS: ADMIT Internal Medicine; ATTEND Internal Medicine
DX: N73.0 Acute parametritis and pelvic cellulitis (principal); D47.3 Essential (hemorrhagic) thrombocythemia; D50.9 Iron deficiency anemia, unspecified; J10.1 Influenza due to other identified influenza virus with other respiratory manifestations
CPT/HCPCS: 0241U-QW; 36415; 74177-TC; 76817-TC; 80048; 80053; 81003; 82550; 82553; 82803; 83605; 84484; 84702; 85025; 85027; 85610; 85730; 86850; 86900; 86901; 87040; 87086; 87389; 87491; 87591; 87661; 93005; 93010; 99285-25; G0378; Q9967